=== PATIENT | male | born 1980 | race Caucasian/White ===

== ENCOUNTER 2017-06-09 10:56 | Observation (INO) | payer OTHER ==
[2017-06-09] MEDS ORDERED: MORPHINE SULFATE 2 MG/ML SYRINGE IVP STA (11:15)
[2017-06-09] MEDS ORDERED: SODIUM CHLORIDE 0.9% 1,000 ML IV STA (11:15)
[2017-06-09] MEDS ORDERED: ONDANSETRON 4 MG/2 ML VIAL IVP STA (11:15)
[2017-06-09 11:54] LABS: Basophils % (A) 0 %; CH 29.9; CHCM 35.7; Eosinophils # (A) 0.1 k/uL (0-0.7); Eosinophils % (A) 1 %; HCT 43.9 % (39.0-53.0); HDW 2.76; HGB 15.6 gm/dL (13.0-17.5); Luc # (Auto) 0.13; Luc % (Auto) 2; Lymphocytes # (A) 0.8 k/uL (1.0-4.8); Lymphocytes % (A) 12 %; MCH 29.8 pg (25.0-35.0); MCHC 35.4 g/dL (31.0-37.0); MCV 84.1 fL (80.0-100.0); Mean Platelet Volume 7.2; Monocytes # (A) 0.6 k/uL (0-1.0); Monocytes % (A) 8 %; Neutrophils # (A) 5.3 k/uL (1.3-7.7); Neutrophils % (A) 77 %; RBC 5.22 m/uL (4.30-5.90); RDW 12.5 % (11.5-15.5); WBC 6.9 k/uL (3.8-10.6); WBC (Perox) 6.67
--- NOTE | 2017-06-09 11:57 | ED ---
Abdominal Pain HPI - General Source: patient, RN notes reviewed Mode of arrival: ambulatory Limitations: no limitations <Michael Ornelas - Last Filed: 06/09/17 13:19> <Phan Cabrera - Last Filed: 06/09/17 13:41> - General Chief Complaint: Abdominal Pain Stated Complaint: abdominal pain Time Seen by Provider: 06/09/17 11:08 - History of Present Illness Initial Comments: 37-year-old male presents emergency Department chief complaints of abdominal pain that started 2 days ago. Patient states it's midabdominal pain nonradiating. Patient states he did have a few bowel movements with bright red blood. Patient states he has no medical history no abdominal surgeries. Denies any constipation states she did have some loose stools. Denies any nausea vomiting. Patient denies any fever, chills, chest pain or shortness of breath or dizziness. Patient has no dysuria no hematuria. (Michael Ornelas) - Related Data Home Medications Medication Instructions Recorded Confirmed Diphenox-Atrop 2.5-0.025 mg 1 tab PO QID PRN 06/09/17 06/09/17 [Lomotil] Allergies Allergy/AdvReac Type Severity Reaction Status Date / Time No Known Allergies Allergy Verified 06/09/17 11:48 Review of Systems ROS Other: All systems not noted in ROS Statement are negative. <Michael Ornelas - Last Filed: 06/09/17 13:19> ROS Other: All systems not noted in ROS Statement are negative. <Phan Cabrera - Last Filed: 06/09/17 13:41> ROS Statement: Those systems with pertinent positive or pertinent negative responses have been documented in the HPI. Past Medical History Past Medical History: No Reported History History of Any Multi-Drug Resistant Organisms: None Reported Past Surgical History: No Surgical Hx Reported Past Psychological History: No Psychological Hx Reported Smoking Status: Current some day smoker Past Alcohol Use History: None Reported Past Drug Use History: None Reported <Michael Ornelas - Last Filed: 06/09/17 13:19> General Exam Limitations: no limitations General appearance: alert, in no apparent distress Head exam: Present: atraumatic, normocephalic, normal inspection Respiratory exam: Present: normal lung sounds bilaterally. Absent: respiratory distress, wheezes, rales, rhonchi, stridor Cardiovascular Exam: Present: regular rate, normal rhythm, normal heart sounds. Absent: systolic murmur, diastolic murmur, rubs, gallop, clicks GI/Abdominal exam: Present: soft, tenderness (Moderate midabdominal tenderness) , normal bowel sounds. Absent: distended, guarding, rebound, rigid Back exam: Absent: CVA tenderness (R), CVA tenderness (L) Neurological exam: Present: alert, oriented X3, CN II-XII intact Skin exam: Present: warm, dry, intact, normal color. Absent: rash <Michael Ornelas - Last Filed: 06/09/17 13:19> Course <Michael Ornelas - Last Filed: 06/09/17 13:19> <Phan Cabrera - Last Filed: 06/09/17 13:41> Vital Signs 06/09/17 06/09/17 11:03 12:45 Temperature 98.7 F Pulse Rate 82 77 Respiratory 18 18 Rate Blood Pressure 112/69 136/77 O2 Sat by Pulse 99 99 Oximetry - Reevaluation(s) Reevaluation #1: 06/09/17 13:41 I did personally do a [id number] evaluation the patient did discuss findings with him. Patient be admitted to the hospitalist service with GI consultation. I did discuss the case with the hospitalist. (Phan Cabrera) Medical Decision Making - Lab Data Result diagrams: 06/09/17 11:36 06/09/17 11:36 <Michael Ornelas - Last Filed: 06/09/17 13:19> - Lab Data Result diagrams: 06/09/17 11:36 06/09/17 11:36 <Phan Cabrera - Last Filed: 06/09/17 13:41> - Medical Decision Making 37-year-old male presented for abdominal pain. Patient CT shows new onset Crohn 's he has no history. (Michael Ornelas) - Lab Data Lab Results 06/09/17 06/09/17 06/09/17 Range/Units 11:36 11:36 11:36 WBC 6.9 (3.8-10.6) k/uL RBC 5.22 (4.30-5.90) m/uL Hgb 15.6 (13.0-17.5) gm/dL Hct 43.9 (39.0-53.0) % MCV 84.1 (80.0-100.0) fL MCH 29.8 (25.0-35.0) pg MCHC 35.4 (31.0-37.0) g/dL RDW 12.5 (11.5-15.5) % Plt Count 188 (150-450) k/uL Neutrophils % 77 % Lymphocytes % 12 % Monocytes % 8 % Eosinophils % 1 % Basophils % 0 % Neutrophils # 5.3 (1.3-7.7) k/uL Lymphocytes # 0.8 L (1.0-4.8) k/uL Monocytes # 0.6 (0-1.0) k/uL Eosinophils # 0.1 (0-0.7) k/uL Basophils # 0.0 (0-0.2) k/uL PT (9.0-12.0) sec INR (<1.2) APTT (22.0-30.0) sec Sodium 136 L (137-145) mmol/L Potassium 4.3 (3.5-5.1) mmol/L Chloride 97 L (98-107) mmol/L Carbon Dioxide 26 (22-30) mmol/L Anion Gap 13 mmol/L BUN 11 (9-20) mg/dL Creatinine 0.97 (0.66-1.25) mg/dL Est GFR (MDRD) Af Amer >60 (>60 ml/min/1.73 sqM) Est GFR (MDRD) Non-Af >60 (>60 ml/min/1.73 sqM) Glucose 95 (74-99) mg/dL Plasma Lactic Acid Yann 1.0 (0.7-2.0) mmol/L Calcium 9.1 (8.4-10.2) mg/dL Total Bilirubin 1.4 H (0.2-1.3) mg/dL AST 30 (17-59) U/L ALT 50 (21-72) U/L Alkaline Phosphatase 77 (38-126) U/L Total Protein 7.1 (6.3-8.2) g/dL Albumin 4.2 (3.5-5.0) g/dL Amylase <30 L (30-110) U/L Lipase 48 (23-300) U/L 06/09/17 Range/Units 11:36 WBC (3.8-10.6) k/uL RBC (4.30-5.90) m/uL Hgb (13.0-17.5) gm/dL Hct (39.0-53.0) % MCV (80.0-100.0) fL MCH (25.0-35.0) pg MCHC (31.0-37.0) g/dL RDW (11.5-15.5) % Plt Count (150-450) k/uL Neutrophils % % Lymphocytes % % Monocytes % % Eosinophils % % Basophils % % Neutrophils # (1.3-7.7) k/uL Lymphocytes # (1.0-4.8) k/uL Monocytes # (0-1.0) k/uL Eosinophils # (0-0.7) k/uL Basophils # (0-0.2) k/uL PT 11.0 (9.0-12.0) sec INR 1.1 (<1.2) APTT 26.9 (22.0-30.0) sec Sodium (137-145) mmol/L Potassium (3.5-5.1) mmol/L Chloride (98-107) mmol/L Carbon Dioxide (22-30) mmol/L Anion Gap mmol/L BUN (9-20) mg/dL Creatinine (0.66-1.25) mg/dL Est GFR (MDRD) Af Amer (>60 ml/min/1.73 sqM) Est GFR (MDRD) Non-Af (>60 ml/min/1.73 sqM) Glucose (74-99) mg/dL Plasma Lactic Acid Yann (0.7-2.0) mmol/L Calcium (8.4-10.2) mg/dL Total Bilirubin (0.2-1.3) mg/dL AST (17-59) U/L ALT (21-72) U/L Alkaline Phosphatase (38-126) U/L Total Protein (6.3-8.2) g/dL Albumin (3.5-5.0) g/dL Amylase (30-110) U/L Lipase (23-300) U/L Disposition <Michael Ornelas - Last Filed: 06/09/17 13:19> <Phan Cabrera - Last Filed: 06/09/17 13:41> Clinical Impression: Crohns disease, Abdominal pain Disposition: ADMITTED IP TO THIS HOSP Condition: Fair Referrals: None,Stated [Primary Care Provider] - 1-2 days
[2017-06-09 11:59] LABS: INR 1.1 (<1.2); Partial Thromboplastin Time 26.9 sec (22.0-30.0)
[2017-06-09 12:04] LABS: ALT 50 U/L (21-72); AST 30 U/L (17-59); Alkaline Phosphatase 77 U/L (38-126); Amylase <30 U/L (30-110); Anion Gap 13 mmol/L; Blood Urea Nitrogen 11 mg/dL (9-20); Calcium 9.1 mg/dL (8.4-10.2); Carbon Dioxide 26 mmol/L (22-30); Chloride 97 mmol/L (98-107); Glucose 95 mg/dL (74-99); Non-African American GFR(MDRD) >60 (>60 ml/min/1.73 sqM); Potassium 4.3 mmol/L (3.5-5.1); Sodium 136 mmol/L (137-145); Total Bilirubin 1.4 mg/dL (0.2-1.3); Total Protein 7.1 g/dL (6.3-8.2)
--- NOTE | 2017-06-09 12:08 | XR ---
EXAMINATION TYPE: XR KUB DATE OF EXAM: 06/09/2017 COMPARISON: NONE HISTORY: Pain TECHNIQUE: Single supine KUB image of the abdomen is obtained FINDINGS: Small bowel demonstrates no evidence for dilatation or air fluid levels. Gas and fecal material is seen in non-distended colon. No convincing evidence for pneumoperitoneum. No unusual calcifications. The lung bases are clear. The osseous structures are intact. IMPRESSION: 1. Overall nonobstructive bowel gas pattern.
[2017-06-09] MEDS ORDERED: RX INFO: IV CONTRAST WAS GIVEN 1 EACH MISC MISCELLANE PRN (12:15)
--- NOTE | 2017-06-09 12:50 | CT ---
EXAMINATION TYPE: CT abdomen pelvis w con DATE OF EXAM: 06/09/2017 REFERENCE: NONE HISTORY: Pain CT DLP: 1562 mGy Automated exposure control for dose reduction was used. TECHNIQUE: Helical acquisition through the abdomen and pelvis was obtained following the oral ingesti on of without Oral Contrast and following intravenous administration of 100 mL of Omnipaque 300. The data was reformatted in axial, coronal and sagittal projections. FINDINGS: There is minimal dependent atelectasis within the lungs. There is no pleural or pericardia l fluid. The heart is minimally enlarged. The small hiatal hernia. Within the abdomen, the liver is prominent measuring 18 cm. The spleen and gallbladder are normal. Both adrenal glands are normal. Both kidneys demonstrate function and are morphologically normal. The pancreas is unremarkable. There is no significant retroperitoneal, iliac or inguinal adenopathy. The bladder wall appears mildly prominent but the bladder is not distended. There is diffuse thickening of the mucosa of the sigmoid colon. There is also some focal thickening i nvolving the splenic flecture and transverse colon as well as the descending colon. There is thickeni ng of the terminal ileum. The remainder the small bowel is normal. The appendix is normal. There is no free fluid and no free air. No bony lesion is seen. IMPRESSION: 1. DIFFUSE THICKENING OF THE COLON WELL THICKENING OF THE TERMINAL ILEUM IS SUGGESTIVE OF CROHN 'S DISEASE. 2. MILD CARDIOMEGALY. 3. SMALL HIATAL HERNIA. 4. MILD HEPATOMEGALY.
[2017-06-09] MEDS ORDERED: MORPHINE SULFATE 4 MG/ML SYRINGE IV PRN (13:22)
[2017-06-09] MEDS ORDERED: ONDANSETRON 4 MG/2 ML VIAL IVP PRN (13:22)
[2017-06-09] MEDS ORDERED: HYDROcodone/APAP 5-325MG 1 EACH TAB PO PRN (13:22)
[2017-06-09] MEDS ORDERED: NALOXONE 0.4 MG/ML 1 ML VIAL IV PRN (13:22)
[2017-06-09 13:53] LABS: Appearance,Urine Clear (Clear); Bilirubin,Urine Negative (Negative); Glucose,Urine (UA) Negative (Negative); Ketones,Urine 1+ (Negative); Leukocyte Esterase,Urine Negative (Negative); Mucus,Urine Rare /hpf; Nitrite,Urine Negative (Negative); PH, Urine 6.5 (5.0-8.0); Particle Count 2504; Protein,Urine 1+ (Negative); UA Billing (MACRO vs. MICRO) MICRO; Urobilinogen,Urine <2.0 mg/dL (<2.0); WBC,Urine 1 /hpf (0-5)
[2017-06-09] MEDS: SODIUM CHLORIDE 0.9% 1,000 ML IV SCH (15:35)
[2017-06-09 16:29] VITALS: BMI 29.5
[2017-06-10] MEDS ORDERED: ACETAMINOPHEN TAB 325 MG TAB PO PRN (07:43)
[2017-06-10] MEDS: SODIUM CHLORIDE 0.9% 1,000 ML IV SCH ×2 (08:08→17:52)
--- NOTE | 2017-06-10 08:33 | HP ---
DATE OF ADMISSION: 06/09/17 CHIEF COMPLAINT: Abdominal pain as well as lower gastrointestinal bleed. HISTORY OF PRESENT ILLNESS: This 37-year-old gentleman with a past medical history of no significant medical issues was not feeling well over the past several days. The patient had crampy abdominal pain and maroon colored blood and the patient came to [facility] and admitted for further evaluation and treatment. CT scan of the brain showed features of possible diffuse thickening ( ) colitis and also possibly Crohns disease also noted. There is no history of any fevers, rigors or chills. No history of any headache , loss of consciousness or seizures. Past medical history of: ntd. FAMILY HISTORY: Unobtainable. The patient is adopted. SOCIAL HISTORY: No history of alcohol and smoking. No history of substance abuse. REVIEW OF SYSTEMS: HEENT: No diminished vision. No diminished hearing. Cardiovascular system: No angina or palpitations. GI: As mentioned earlier. Respiratory: As mentioned earlier. : No dysuria. Nervous system: No numbness , weakness. Allergy/Immunology: No asthma or hayfever. Musculoskeletal: As mentioned earlier. Hematology/oncology: No history of anemia. Endocrine. No history of diabetes or hypothyroidism. Constitutional: As mentioned earlier. Dermatology: Negative. Rheumatology: Negative. Psychiatry: As mentioned earlier. PHYSICAL EXAMINATION: The patient is alert and oriented times three. Pulse 67. Blood pressure 116/62. Respiratory rate 16, temperature 98.9 degrees. Pulse ox 100% on room air. HEENT: Conjunctivae normal. NECK: No JVD. Cardiovascular: S1, S2 muffled. Respiratory: Breath sounds diminished at the bases. A few scattered rhonchi and crackles. Abdomen is soft. Mild diffuse tenderness present. No guarding. No rigidity. No mass palpable. over the right diminished. Nervous system: No focal deficits. LABS: CBC within normal limits. Sodium 130. ASSESSMENT: 1. Diffuse abdominal pain with possible diffuse colitis with with possible Crohns disease or ulcerative colitis. 2. Hyponatremia. 3. Abdominal pain for evaluation. RECOMMENDATIONS AND DISCUSSION: Continue the current medications. Continue symptomatic treatment. Otherwise, at this time, I would recommend check C. Difficile. Gastroenterology evaluation. Possible colonoscopy. Guarded prognosis. Further recommendations to follow. MTDD
--- NOTE | 2017-06-10 11:12 | P.CONS ---
History of Present Illness - Reason for Consult Consult date: 06/10/17 Evaluation for Crohn's disease Requesting physician: Jose Geronimo - History of Present Illness 37-year-old male with no significant past medical history presents with abdominal pain nausea vomiting diarrhea 4 days. Patient was at a carnival Wednesday night ate carnival type food. On Wednesday he developed intermittent chills felt feverish with multiple episodes of slightly tinged bloody diarrhea, nausea vomiting with diffuse abdominal discomfort. Nausea vomiting subsided over the last 24 hours diarrhea is still present small amounts every few hours. Consultation requested for Crohn's evaluation. CT without oral contrast reported diffuse thickening of the sigmoid colon as well as the splenic flexure transverse and descending. Thickening of the terminal ileum suggestive of Crohn 's disease. Appendix normal. No history of diarrhea. He is adopted therefore unknown if there is familial history of inflammatory bowel disease. No changes in his skin or vision. No history of colonoscopy. White count 6.9. Hemoglobin 15.6. LFT; total bilirubin 1.4. AST 30. ALT 50. Alkaline phosphatase 77. Lipase 48. Clostridium difficile negative. Stool occult blood positive. Review of Systems Constitutional: Denies fever, chills, sweats, weight gain, or loss. HEENT: Negative for migraines, blurred vision or loss, earaches, drainage, tinnitus, oral mucosal lesions, dysphagia, or odynophagia. Cardiac: Negative for chest pain, arrhythmias, or palpitation. Respiratory: Negative for shortness of breath, hemoptysis, cough, or sputum production. Gastrointestinal: See HPI for pertinent findings. Genitourinary: Negative for hematuria, urgency, frequency, polyuria, dysuria, or penile discharge. Musculoskeletal: Negative for muscle aches, swelling, arthritis, and arthralgias. Neurologic: Negative for stroke or TIA. Endocrine: Negative for thyroid problems. Skin: Negative for rash or itching. Psychiatric: Negative history for depression and anxiety All systems: negative (See HPI) Past Medical History Past Medical History: No Reported History History of Any Multi-Drug Resistant Organisms: None Reported Past Surgical History: No Surgical Hx Reported Past Psychological History: No Psychological Hx Reported Smoking Status: Never smoker Past Alcohol Use History: None Reported Past Drug Use History: None Reported - Past Family History Father Additional Family Medical History / Comment(s): adopted Medications and Allergies Home Medications Medication Instructions Recorded Confirmed Type Diphenox-Atrop 2.5-0.025 mg 1 tab PO QID PRN 06/09/17 06/09/17 History [Lomotil] Allergies Allergy/AdvReac Type Severity Reaction Status Date / Time No Known Allergies Allergy Verified 06/09/17 11:48 Physical Exam Vitals: Vital Signs Temp Pulse Pulse Resp BP BP Pulse Ox 06/10/17 07:00 98.1 F 71 12 131/85 98 06/10/17 01:08 98.8 F 67 16 127/66 98 06/09/17 19:36 97.8 F 73 16 110/59 97 06/09/17 15:55 99.2 F 67 16 127/78 99 06/09/17 15:28 98.9 F 67 16 116/67 100 06/09/17 14:28 98.4 F 71 14 124/71 98 06/09/17 12:45 77 18 136/77 99 Intake and Output 06/09/17 06/10/17 06/10/17 22:59 06:59 14:59 Intake Total 590 Balance 590 Intake: Oral 590 Other: # Voids 3 2 2 # Bowel Movements 1 Results CBC & Chem 7: 06/09/17 11:36 06/09/17 11:36 Labs: Abnormal Lab Results - Last 24 Hours (Table) 06/09/17 06/09/17 06/09/17 Range/Units 11:36 11:36 13:40 Lymphocytes # 0.8 L (1.0-4.8) k/uL Sodium 136 L (137-145) mmol/L Chloride 97 L (98-107) mmol/L Total Bilirubin 1.4 H (0.2-1.3) mg/dL Amylase <30 L (30-110) U/L Ur Specific [place] 1.050 H (1.001-1.035) Urine Protein 1+ H (Negative) Urine Ketones 1+ H (Negative) Urine Mucus Rare H (None) /hpf CT scan - abdomen: report reviewed (Dr. Armas) Assessment and Plan (1) Abdominal pain Narrative/Plan: 37-year-old male presents with intractable nausea vomiting diffuse abdominal pain with light tinged bowel movements 4 days after eating at a local carnival. Possible self limiting infectious colitis possible inflammatory. Status: Acute Plan: 1. Stool studies as patient is still experiencing small loose bowel movements. Cipro 500 mg daily and Flagyl 500 mg TID x 1 week. Will advance diet as tolerated. Colonoscopy was discussed at this time patient is declining would like to consider is an outpatient if clinically indicated. Supportive measures. RTO 1-2 weeks. We'll follow with you. Thank you for this kind referral and the opportunity to participate in the care of your patient. This consultation was discussed with Dr. Armas. The impression and plan of care have been directed as dictated.
[2017-06-10] MEDS: CIPROFLOXACIN HCL 500 MG TAB PO SCH (14:14)
[2017-06-10] MEDS: metroNIDAZOLE 500 MG TAB PO SCH ×2 (15:32→21:36)
--- NOTE | 2017-06-10 19:31 | PN ---
DATE OF SERVICE: 06/10/2017 This 37-year-old gentleman who was admitted with abdominal pain also had diffuse colitis and is being evaluated for possible Crohn's disease. Gastroenterology has seen the patient. Abdominal/pelvis CT scan has been reviewed. GI recommended colonoscopy, which the patient declined. No chest pain. No palpitations. No fever. On exam, alert and oriented x3. Pulse 67, blood pressure 127/66, respiration 16, temperature 98.8, pulse ox 98% on room air. HEENT: Conjunctivae normal. NECK: No jugular venous distention. CARDIOVASCULAR: S1, S2 muffled. RESPIRATORY: Breath sounds diminished at the bases. No rhonchi. No crackles. ABDOMEN: Soft. Mild diffuse discomfort on palpation. LEGS: No edema. No swelling. NERVOUS SYSTEM: No focal deficit. LABS: Sodium 136. ASSESSMENT: 1. Diffuse abdominal pain with possible diffuse colitis. Rule out Crohn's disease or ulcerative colitis. 2. Hyponatremia. 3. Abdominal pain. RECOMMENDATIONS AND DISCUSSION: I recommend to continue the current medications , continue the monitoring and symptomatic treatment. Otherwise, at this time closely follow with Gastroenterology. Guarded prognosis because of multiple complex medical issues. Further recommendations to follow. MTDD
[2017-06-11] MEDS: SODIUM CHLORIDE 0.9% 1,000 ML IV SCH (06:39)
[2017-06-11 07:31] VITALS: BP 107/63; PULSE 62; RESP 17; TEMP 98
--- NOTE | 2017-06-11 08:38 | P.PN ---
Subjective Principal diagnosis: GI bleed colitis 37 y/o male admitted with sudden onset of N/V/blood-tinged diarrhea with abdominal pain. CT reported colitis/terminal ileum thickening. Started on oral ABX yesterday; feels better. Afebrile. Passing a few loose stools minimal blood. Objective - Vital Signs Vital signs: Vital Signs Temp 98.0 F 06/11/17 07:31 Pulse 62 06/11/17 07:31 Resp 17 06/11/17 07:31 BP 107/63 06/11/17 07:31 Pulse Ox 97 06/11/17 07:31 Intake & Output 06/10/17 06/11/17 06/11/17 18:59 06:59 18:59 Intake Total 525 480 Balance 525 480 Intake: Intake, IV Titration 525 Amount Sodium Chloride 0.9% 1, 525 000 ml @ 75 mls/hr IV . [id number] AMADOU Rx#:[id number] Oral 480 Other: Voiding Method Toilet # Voids 2 1 # Bowel Movements 1 - Exam General appearance: The patient is alert, oriented, in no acute distress. HET: Head is normocephalic and atraumatic. Pupils are equal and reactive. Oropharynx is clear without lesions. Neck: Supple without lymphadenopathy. Trachea midline. Heart: S1 S2. Regular rate and rhythm. Lungs: No crackles or wheezes are heard. Abdomen: Soft, very mild bilateral lower quadrant tenderness, nondistended with bowel sounds. No peritoneal signs. No palpable organomegaly or masses. Extremities: Normal skin color and turgor. No cyanosis, rash, ulceration, clubbing, or edema. Radial and pedal pulses are 2/4 bilaterally. Neurological: No focal deficits. Strength and sensation are grossly intact. - Labs CBC & Chem 7: 06/09/17 11:36 06/09/17 11:36 Labs: Microbiology - Last 24 Hours (Table) 06/10/17 13:00 Stool Culture - Preliminary Stool 06/10/17 13:00 Stool for WBCs - Final Stool Assessment and Plan (1) Abdominal pain Narrative/Plan: 37-year-old male presents with intractable nausea vomiting diffuse abdominal pain with light tinged bowel movements 4 days after eating at a local carnival. Possible self limiting infectious colitis possible inflammatory. Status: Acute Plan: 1. Stool studies pending. Cipro 500 mg daily and Flagyl 500 mg TID x 1 week. Diet as tolerated. Outpatient colonoscopy to be discussed in follow-up visit. Discharge per medicine. Assessment and plan a care discussed with Dr. Armas.
[2017-06-11] MEDS: metroNIDAZOLE 500 MG TAB PO SCH (09:17)
[2017-06-11] MEDS: CIPROFLOXACIN HCL 500 MG TAB PO SCH (09:17)
--- NOTE | 2017-06-11 15:11 | ECHOF ---
Referral Reason:cardiomegally MEASUREMENTS -------- HEIGHT: 182.9 cm WEIGHT: 98.9 kg BP: 107/63 RVIDd: 4.4 cm (< 3.3) IVSd: 1.3 cm (0.6 - 1.1) LVIDd: 4.2 cm (3.9 - 5.3) LVPWd: 1.0 cm (0.6 - 1.1) IVSs: 1.1 cm LVIDs: 3.5 cm LVPWs: 1.7 cm LA Diam: 3.0 cm (2.7 - 3.8) LAESV Index (A-L): 25.85 ml/m Ao Diam: 3.2 cm (2.0 - 3.7) AV Cusp: 1.7 cm (1.5 - 2.6) LA Diam: 4.0 cm (2.7 - 3.8) MV EXCURSION: 32.625 mm (> 18.000) MV EF SLOPE: 155 mm/s (70 - 150) EPSS: 0.3 cm MV E Simone: 0.71 m/s MV DecT: 310 ms MV A Simone: 0.66 m/s MV E/A Ratio: 1.08 RAP: 5.00 mmHg RVSP: 25.41 mmHg FINDINGS -------- Sinus rhythm. This was a technically good study. There is borderline concentric left ventricular hypertrophy. Overall left ventricular systolic function is normal with, an EF between 55 - 60 %. The right ventricle is severely enlarged. Normal LA size by volume 22+/-6 ml/m2. The right atrial size is normal. The aortic valve is trileaflet, and appears structurally normal. No aortic stenosis or regurgitation. Mild mitral regurgitation is present. [id number] tricuspid regurgitation present. There is no evidence of pulmonary hypertension. The right ventricular systolic pressure, as measured by Doppler, is 25.41mmHg. Trace/mild (physiologic) pulmonic regurgitation. The aortic root size is normal. There is no pericardial effusion. CONCLUSIONS -------- 1. There is borderline concentric left ventricular hypertrophy. 2. Overall left ventricular systolic function is normal with, an EF between 55 - 60 %. 3. The right ventricle is severely enlarged. 4. Mild mitral regurgitation is present. 5. [id number] tricuspid regurgitation present. 6. There is no evidence of pulmonary hypertension. 7. The right ventricular systolic pressure, as measured by Doppler, is 25.41mmHg. 8. Trace/mild (physiologic) pulmonic regurgitation. 9. There is no pericardial effusion. VOLUNTEER SERVICES ASSISTANT: Sophia Hendrickson RDCS
--- NOTE | 2017-06-14 15:43 | DS ---
DATE OF SERVICE: 06/11/2017 FINAL DIAGNOSES: 1. Diffuse abdominal pain with possible diffuse colitis. Possible infectious colitis versus Crohn's disease or ulcerative colitis. 2. Hypernatremia. 3. Abdominal pain, improved. DISCHARGE DISPOSITION: The patient discharged in stable condition with guarded prognosis. HISTORY OF PRESENT ILLNESS: This 38-year-old gentleman was admitted with diffuse abdominal pain and features of colitis, diffuse colitis on the CAT scan. Treatment symptomatically and improved significantly. Gastroenterology saw the patient, recommended outpatient follow up and possible colonoscopy if the patient's symptoms are not improving or in case of recurrence. A 2D echo was also done which showed ejection fraction of 50-60%. On exam, vitals are stable. CARDIOVASCULAR: S1/S2. ABDOMEN: Soft, no tenderness. DISCHARGE DIET: Cardiac. ACTIVITY: Limited until follow up. Follow up with Dr. Padmini Armas as advised. Follow up with Dr. Tolu Pitt in 2 -3 days. MEDICATIONS: 1. Tylenol 650 q5 p.r.n. 2. Cipro 500 mg p.o. b.i.d. for five days. 3. Flagyl 500 mg p.o. t.i.d. for five days. 4. Pepcid 20 mg p.o. b.i.d. Once again, the patient is discharged in stable condition with guarded prognosis. MTDD
== END 2017-06-11 13:45 | disposition home or self-care (01) ==
LOC: EC 10:56 → 3SUR 13:41 → INTOOBSV 13:41 → 3SUR 15:19
PROVIDERS: ADMIT Hospitalist; ATTEND Hospitalist
DX: R10.9 Unspecified abdominal pain (principal); R19.5 Other fecal abnormalities; K92.1 Melena; R11.2 Nausea with vomiting, unspecified; R19.7 Diarrhea, unspecified; E87.1 Hypo-osmolality and hyponatremia; F17.200 Nicotine dependence, unspecified, uncomplicated
CPT/HCPCS: 96360 ×2; 99285 ×2; 36415; 93306; 93005; 80053; 82150; 83605; 83690; 85025; 85610; 85730; 82272; 81001; 87324; 87045; 89055; 87046; 74000; 74177; G0378 ×4; Q9967

== ENCOUNTER 2018-08-05 22:11 | Emergency (ER) | payer BC ==
[2018-08-05] MEDS ORDERED: HYDROcodone/APAP 5-325MG 1 EACH TAB PO STA (22:35)
[2018-08-05] MEDS ORDERED: KETOROLAC 60 MG/2 ML VIAL IM STA (22:35)
--- NOTE | 2018-08-05 23:51 | CT ---
EXAMINATION TYPE: CT abdomen pelvis wo con DATE OF EXAM: 08/05/2018 COMPARISON: 06/09/2017 HISTORY: LLQ PAIN CT DLP: 793.00 mGycm Automated exposure control for dose reduction was used. TECHNIQUE: Helical acquisition of images was performed from the lung bases through the pelvis. FINDINGS: Lung bases are clear of consolidation. There is mild increased interstitial density at the lung bases . There is no pleural effusion. Heart is slightly enlarged. Liver spleen pancreas gallbladder appear normal. Bile ducts are not dilated. There is no adrenal mass . Kidneys show normal size and contour. There is no hydronephrosis. There is no retroperitoneal adeno vinh. There is no mesenteric adenopathy. Appendix appears normal. There is no intestinal wall thicke brian. There are no dilated loops. The stomach appears normal. There is no ascites. There is no free air. Bladder distends smoothly. There is no pelvic mass. There is no inguinal hernia. Soft tissues appear normal. There is no umbilical hernia. Lumbar spine is intact. I see no bony destructive process. IMPRESSION: NORMAL APPENDIX. NEGATIVE CT SCAN OF THE ABDOMEN AND PELVIS.
--- NOTE | 2018-08-06 00:24 | ED ---
General Adult HPI - General Chief complaint: Abdominal Pain Stated complaint: abd pain Time Seen by Provider: 08/05/18 22:35 Source: patient, RN notes reviewed, old records reviewed Mode of arrival: ambulatory Limitations: no limitations - History of Present Illness Initial comments: this is a 38-year-old male the ER for evaluation. Patient has history of abdominal pain. Patient Brenning of left-sided flank pain. Patient states his prior history of similar complaints was related to colitis which they're concerned for Crohn's. He states he did have further evaluation and treatment and symptoms did resolve. No colonoscopy history. Patient states he had left- sided flank pain in the left groin. Otherwise denies any fevers no nausea no vomiting no diarrhea - Related Data Home Medications Medication Instructions Recorded Confirmed Ibuprofen [Motrin Ib] 400 mg PO Q6H PRN 08/05/18 08/05/18 Previous Rx's Medication Instructions Recorded Ciprofloxacin HCl [Cipro] 500 mg PO Q12HR #20 tablet 08/06/18 Naproxen [Naprosyn] 500 mg PO Q12HR PRN #30 tab 08/06/18 Ondansetron Odt [Zofran ODT] 4 mg PO Q8HR PRN #30 tab 08/06/18 metroNIDAZOLE [Flagyl] 500 mg PO TID #30 tab 08/06/18 Allergies Allergy/AdvReac Type Severity Reaction Status Date / Time No Known Allergies Allergy Verified 08/05/18 22:43 Review of Systems ROS Statement: Those systems with pertinent positive or pertinent negative responses have been documented in the HPI. ROS Other: All systems not noted in ROS Statement are negative. Past Medical History Past Medical History: No Reported History History of Any Multi-Drug Resistant Organisms: None Reported Past Surgical History: No Surgical Hx Reported Past Psychological History: No Psychological Hx Reported Smoking Status: Never smoker Past Alcohol Use History: None Reported Past Drug Use History: None Reported - Past Family History Father Additional Family Medical History / Comment(s): adopted General Exam Limitations: no limitations General appearance: alert, in no apparent distress Head exam: Present: atraumatic, normocephalic, normal inspection Eye exam: Present: normal appearance, PERRL, EOMI. Absent: scleral icterus, conjunctival injection, periorbital swelling ENT exam: Present: normal exam, mucous membranes moist Neck exam: Present: normal inspection. Absent: tenderness, meningismus, lymphadenopathy Respiratory exam: Present: normal lung sounds bilaterally. Absent: respiratory distress, wheezes, rales, rhonchi, stridor Cardiovascular Exam: Present: regular rate, normal rhythm, normal heart sounds. Absent: systolic murmur, diastolic murmur, rubs, gallop, clicks GI/Abdominal exam: Present: soft, normal bowel sounds. Absent: distended, tenderness, guarding, rebound, rigid Extremities exam: Present: normal inspection, full ROM, normal capillary refill. Absent: tenderness, pedal edema, joint swelling, calf tenderness Back exam: Present: normal inspection Neurological exam: Present: alert, oriented X3, CN II-XII intact Psychiatric exam: Present: normal affect, normal mood Skin exam: Present: warm, dry, intact, normal color. Absent: rash Course Vital Signs 08/05/18 08/06/18 22:24 00:45 Temperature 97.8 F 98.0 F Pulse Rate 65 77 Respiratory 18 16 Rate Blood Pressure 126/83 132/70 O2 Sat by Pulse 98 99 Oximetry Medical Decision Making - Medical Decision Making 38 male the ER with signs and symptoms of colitis with left-sided abdominal pain , no tenderness on exam. Patient is able to tolerate oral intake here currently in the ER, will continue to follow-up with GI get colonoscopy as priorly directed - Radiology Data Radiology results: report reviewed (CT of the pelvis negative for acute disease) , image reviewed Disposition Clinical Impression: Abdominal pain, Colitis Disposition: HOME SELF-CARE Condition: Good Instructions: Colitis (ED) Prescriptions: Ciprofloxacin HCl [Cipro] 500 mg PO Q12HR #20 tablet metroNIDAZOLE [Flagyl] 500 mg PO TID #30 tab Naproxen [Naprosyn] 500 mg PO Q12HR PRN #30 tab PRN Reason: Pain Ondansetron Odt [Zofran ODT] 4 mg PO Q8HR PRN #30 tab PRN Reason: nausea/vomiting Is patient prescribed a controlled substance at d/c from ED?: No Referrals: Lewis Davila MD [Primary Care Provider] - 1-2 days
[2018-08-06] MEDS ORDERED: CIPROFLOXACIN HCL 500 MG TAB PO STA (00:25)
[2018-08-06] MEDS ORDERED: ACET/COD 300 MG/30 MG STARTER PACK 6 TAB BTL PO STA (00:25)
[2018-08-06] MEDS ORDERED: metroNIDAZOLE 500 MG TAB PO STA (00:25)
[2018-08-06 00:52] VITALS: BP 132/70; PULSE 77; RESP 16; TEMP 98
== END 2018-08-06 00:45 | disposition home or self-care (01) ==
LOC: EC 22:11
DX: K52.9 Noninfective gastroenteritis and colitis, unspecified (principal)
CPT/HCPCS: 74176; 99284; 96372; J1885

== ENCOUNTER 2019-06-22 19:45 | Emergency (ER) | payer BC ==
[2019-06-22] MEDS ORDERED: SODIUM CHLORIDE 0.9% 1,000 ML IV STA (20:19)
[2019-06-22 20:55] LABS: Basophils % (A) 0 %; Eosinophils # (A) 0.2 k/uL (0-0.7); Eosinophils % (A) 3 %; HCT 45.2 % (39.0-53.0); HGB 15.2 gm/dL (13.0-17.5); Lymphocytes # (A) 2.1 k/uL (1.0-4.8); Lymphocytes % (A) 35 %; MCHC 33.6 g/dL (31.0-37.0); MCV 86.2 fL (80.0-100.0); Mean Platelet Volume 6.5; Monocytes # (A) 0.3 k/uL (0-1.0); Monocytes % (A) 5 %; Neutrophils # (A) 3.4 k/uL (1.3-7.7); Neutrophils % (A) 55 %; Platelet Count 260 k/uL (150-450); RBC 5.24 m/uL (4.30-5.90); RDW 12.8 % (11.5-15.5); WBC 6.1 k/uL (3.8-10.6)
[2019-06-22 21:07] LABS: ALT 55 U/L (21-72); AST 34 U/L (17-59); African American GFR (CKD) >90 (>60 ml/min/1.73 sqM); Alkaline Phosphatase 72 U/L (38-126); Anion Gap 11 mmol/L; Blood Urea Nitrogen 17 mg/dL (9-20); Calcium 9.7 mg/dL (8.4-10.2); Carbon Dioxide 24 mmol/L (22-30); Chloride 106 mmol/L (98-107); Glucose 88 mg/dL (74-99); Non-African American GFR(CKD) >90 (>60 ml/min/1.73 sqM); Potassium 4.2 mmol/L (3.5-5.1); Sodium 141 mmol/L (137-145); Total Bilirubin 1.3 mg/dL (0.2-1.3); Total Protein 8.2 g/dL (6.3-8.2)
--- NOTE | 2019-06-22 22:06 | CT ---
EXAMINATION TYPE: CT abdomen pelvis w con DATE OF EXAM: 06/22/2019 COMPARISON: 08/05/2018 HISTORY: Abdomen pain, RT side for several weeks CT DLP: 1014.5 mGycm Automated exposure control for dose reduction was used. TECHNIQUE: Helical acquisition of images was performed from the lung bases through the pelvis. CONTRAST: Performed without Oral Contrast and with IV Contrast, patient injected with 100 mL of Isovue 300. FINDINGS: Lung bases are clear of consolidation. There is no pleural effusion. There is no pericardial effusion . There is small hiatal hernia. Liver spleen pancreas gallbladder appear normal. Bile ducts are not d ilated. There is no adrenal mass. Kidneys show satisfactory contrast opacification. There is no hydronephrosi s. There is no retroperitoneal adenopathy. Bladder distends smoothly. There is no inguinal hernia. Th ere is no free fluid in the pelvis. There is no mesenteric edema. There is no sign of a bowel obstruc tion. There is no sign of thickened appendix. Appendix appears normal. There is no sign of free air o r ascites. Lumbar vertebra have fairly normal spacing and alignment. I see no bony destructive process. Bony pel vis appears intact. IMPRESSION: NEGATIVE CT SCAN ABDOMEN AND PELVIS. NORMAL APPENDIX. NO ADVERSE CHANGE COMPARED TO OLD EXAM.
--- NOTE | 2019-06-22 22:39 | ED ---
General Adult HPI - General Chief complaint: Abdominal Pain Stated complaint: abdominal pain Time Seen by Provider: 06/22/19 20:19 Source: patient, RN notes reviewed, old records reviewed Mode of arrival: ambulatory Limitations: no limitations - History of Present Illness Initial comments: 39-year-old male patient, no pertinent past medical history presents ED chief complaint of waxing and waning right lower quadrant pain for approximately 2 weeks. Patient does report he has had some nausea without emesis. Denies any fevers chills, nausea systemic symptoms. Denies any complaints at this time. Systemic: Pt denies fatigue, fever/chills, rash. Pt denies weakness, night sweats, weight loss. Neuro: Pt denies headache, visual disturbances, syncope or pre-syncope. HEENT: Pt denies ocular discharge or irritation, otalgia, rhinorrhea, pharyngitis or notable lymphadenopathy. Cardiopulmonary: Pt denies chest pain, SOB, heart palpitations, dyspnea on exertion. Abdominal/GI: Pt denies v/d. : Pt denies dysuria, burning w/ urination, frequency/urgency. Denies new onset urinary or bowel incontinence. MSK: Pt denies myalgia, loss of strength or function in extremities. Neuro: Pt denies new onset weakness, paresthesias. - Related Data Home Medications Medication Instructions Recorded Confirmed Ibuprofen [Motrin Ib] 400 mg PO Q6H PRN 08/05/18 08/05/18 Previous Rx's Medication Instructions Recorded Ciprofloxacin HCl [Cipro] 500 mg PO Q12HR #20 tablet 08/06/18 Naproxen [Naprosyn] 500 mg PO Q12HR PRN #30 tab 08/06/18 Ondansetron Odt [Zofran ODT] 4 mg PO Q8HR PRN #30 tab 08/06/18 metroNIDAZOLE [Flagyl] 500 mg PO TID #30 tab 08/06/18 Allergies Allergy/AdvReac Type Severity Reaction Status Date / Time No Known Allergies Allergy Verified 06/22/19 20:04 Review of Systems ROS Statement: Those systems with pertinent positive or pertinent negative responses have been documented in the HPI. ROS Other: All systems not noted in ROS Statement are negative. Past Medical History Past Medical History: No Reported History History of Any Multi-Drug Resistant Organisms: None Reported Past Surgical History: No Surgical Hx Reported Past Psychological History: No Psychological Hx Reported Smoking Status: Never smoker Past Alcohol Use History: Occasional Past Drug Use History: None Reported - Past Family History Father Additional Family Medical History / Comment(s): adopted General Exam - General Exam Comments Initial Comments: Constitutional: NAD, AOX3, Pt has pleasant affect. HEENT: NC/AT, trachea midline, neck supple, no lymphadenopathy. Posterior pharynx non erythematous, without exudates. External ears appear normal, without discharge. Mucous membranes moist. Eyes PERRLA, EOM intact. There is no scleral icterus. No pallor noted. Cardiopulmonary: RRR, no murmurs, rubs or gallops, no JVD noted. Lungs CTAB in anterior and posterior garg. No peripheral edema. Abdominal exam: Abdomen soft and non-distended. Abdomen mildly tender to palpation in RLQ, no other magdaleno of abdominal tenderness. Bowel sounds active in LLQ. No hepatosplenomegaly. No ecchymosis Neuro: CN II-XII grossly intact. No nuchal rigidity. No raccon eyes, no javier sign, no hemotympanum. No cervical spinal tenderness. MSK: No posterior calf tenderness bilaterally, homans sign negative bilaterally. Posterior tibialis and radial pulse +2 bilaterally. Sensation intact in upper and lower extremities. Full active ROM in upper and lower extremities, 5/5 stregnth. Limitations: no limitations Course Vital Signs 06/22/19 20:02 Temperature 98.1 F Pulse Rate 78 Respiratory 18 Rate Blood Pressure 108/66 O2 Sat by Pulse 98 Oximetry Medical Decision Making - Medical Decision Making 39-year-old male patient presented to ED chief complaint of 2 weeks of right lower quadrant pain. Patient also has stable, afebrile. Physical exam displayed mild tenderness to palpation in right lower quadrant. Investigations non-impressive. CT negative. Patient will discharge with GI follow-up. Return if condition worsens. Case discussed with Dr. Rodriguez. - Lab Data Result diagrams: 06/22/19 20:31 06/22/19 20:31 Lab Results 06/22/19 06/22/19 06/22/19 Range/Units 20:31 20:31 20:31 WBC 6.1 (3.8-10.6) k/uL RBC 5.24 (4.30-5.90) m/uL Hgb 15.2 (13.0-17.5) gm/dL Hct 45.2 (39.0-53.0) % MCV 86.2 (80.0-100.0) fL MCH 29.0 (25.0-35.0) pg MCHC 33.6 (31.0-37.0) g/dL RDW 12.8 (11.5-15.5) % Plt Count 260 (150-450) k/uL Neutrophils % 55 % Lymphocytes % 35 % Monocytes % 5 % Eosinophils % 3 % Basophils % 0 % Neutrophils # 3.4 (1.3-7.7) k/uL Lymphocytes # 2.1 (1.0-4.8) k/uL Monocytes # 0.3 (0-1.0) k/uL Eosinophils # 0.2 (0-0.7) k/uL Basophils # 0.0 (0-0.2) k/uL Sodium 141 (137-145) mmol/L Potassium 4.2 (3.5-5.1) mmol/L Chloride 106 (98-107) mmol/L Carbon Dioxide 24 (22-30) mmol/L Anion Gap 11 mmol/L BUN 17 (9-20) mg/dL Creatinine 0.85 (0.66-1.25) mg/dL Est GFR (CKD-EPI)AfAm >90 (>60 ml/min/1.73 sqM) Est GFR (CKD-EPI)NonAf >90 (>60 ml/min/1.73 sqM) Glucose 88 (74-99) mg/dL Plasma Lactic Acid Yann 1.1 (0.7-2.0) mmol/L Calcium 9.7 (8.4-10.2) mg/dL Total Bilirubin 1.3 (0.2-1.3) mg/dL AST 34 (17-59) U/L ALT 55 (21-72) U/L Alkaline Phosphatase 72 (38-126) U/L Total Protein 8.2 (6.3-8.2) g/dL Albumin 5.0 (3.5-5.0) g/dL Lipase 48 (23-300) U/L Disposition Clinical Impression: Abdominal pain Disposition: HOME SELF-CARE Condition: Stable Instructions (If sedation given, give patient instructions): Abdominal Pain (ED) Additional Instructions: Patient to adhere to previously discussed treatment plan and will take medication(s) as directed. Patient to follow up with PCP in 1-2 days. Patient to return to ED if symptoms do not improve. Follow-up with primary care provider tomorrow. Follow-up with GI consult 1-2 days. Return to ER if condition worsens in any way. Is patient prescribed a controlled substance at d/c from ED?: No Referrals: Lewis Davila MD [Primary Care Provider] - 1-2 days Diane Armas MD [STAFF PHYSICIAN] - 1-2 days
[2019-06-22 23:03] VITALS: BP 118/68; PULSE 52; RESP 17; TEMP 96.8
== END 2019-06-22 23:03 | disposition home or self-care (01) ==
LOC: EC 19:45
DX: R10.31 Right lower quadrant pain (principal); R11.0 Nausea
CPT/HCPCS: 99284; 96360; 36415; 80053; 83605; 83690; 85025; 74177; Q9967

== ENCOUNTER 2023-10-25 08:22 | Emergency (ER) | payer BC ==
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
[2023-10-25 09:49] VITALS: BP 124/72; PULSE 73; RESP 16; TEMP 98.1
== END 2023-10-25 09:41 | disposition home or self-care (01) ==
LOC: EC 08:22
DX: M54.2 Cervicalgia (principal); R51.9 Headache, unspecified; V43.52XA Car driver injured in collision with other type car in traffic accident, initial encounter; Y92.410 Unspecified street and highway as the place of occurrence of the external cause
CPT/HCPCS: 70450; 72125; 99284